=== PATIENT | male | born 1995 | race Caucasian/White ===

== ENCOUNTER 2021-01-14 07:23 | Emergency (ER) | payer SELFPAY ==
[2021-01-14] MEDS ORDERED: Albuterol/Ipratropium 3.0-0.5 MG/3 ML Neb Soln NEB ONE (07:54)
[2021-01-14] MEDS ORDERED: methylPREDNISolone Sodium Succinate 125 MG/2 ML SDV IVPUSH ONE (07:55)
--- NOTE | 2021-01-14 07:58 | EDM.PDOC ---
ED HPI GENERAL MEDICAL PROBLEM - General Chief Complaint: Respiratory Problem Stated Complaint: BREATHING PROBLEM Time Seen by Provider: 01/14/21 07:40 - History of Present Illness INITIAL COMMENTS - FREE TEXT/NARRATIVE: Patient presents complaining of shortness of breath for 2 hours in duration consistent with asthma exacerbation. Patient number of years ago has been intubated. Patient ran out of his asthma medications. No recent fevers or productive sputum. There is typical tightness in his chest. No exacerbating or alleviating factors of these moderate symptoms - Related Data Allergies Allergy/AdvReac Type Severity Reaction Status Date / Time No Known Allergies Allergy Verified 01/14/21 07:43 Home Meds: Home Meds Albuterol Sulfate [Albuterol Sulfate HFA] 8.5 gm INH Q4HR PRN #1 ea 01/14/21 [Rx] Albuterol [Proventil Neb Soln] 01/14/21 [History] Fluticasone/Salmeterol [Advair 250-50] 01/14/21 [History] Montelukast [Singulair] 01/14/21 [History] predniSONE [Prednisone] 50 mg PO DAILY #5 tablet 01/14/21 [Rx] ED ROS GENERAL - Review of Systems Review Of Systems: Comprehensive ROS is negative, except as noted in HPI. Constitutional: Denies: Fever Respiratory: Reports: Shortness of Breath ED EXAM, GENERAL - Physical Exam Exam: See Below Free Text/Narrative:: CONSTITUTIONAL: well appearing in no acute distress SKIN: Warm, dry, and intact without rash HENT: Normocephalic, atraumatic, PULMONARY: Watered air movement. Bilateral wheeze with prolonged expiratory phase CARDIOVASCULAR: regular rate, No murmur, rubs, or gallops GASTROINTESTINAL: soft, nondistended, nontender NEUROLOGIC: normal speech, II-XII intact. light touch/5/5 power equal and symmetric in upper and lower extremities without deficit MUSCULOSKELETAL: no gross deformities, atraumatic PSYCHIATRIC: normal mood and affect Course - Vital Signs Text/Narrative:: Differential diagnosis: Asthma exacerbation, pneumonia, Covid, PE, other Patient presents with shortness of breath in the setting of asthma. Patient given breathing treatments and steroids with improvement of condition. Patient still with some significant tightness. Patient was observed for prolonged period in the emergency department to ensure that he could last enough time for outpatient management. Patient in fact was offered inpatient treatment but would like to go home at this time. I do not think this is unreasonable and patient is going to stay with a friend who lives close to the hospital. Patient will be given breathing treatments and steroids with return precautions. Chest x-ray is otherwise unremarkable and patient feeling better after treatments in the emergency department. Given multiple breathing treatments and multiple reevaluations. Critical care: I spent 30 minutes of critical care time with this patient not including reportable procedures. There was an acute impairment of an organ system with a high probability of imminent or life threatening deterioration in the patient`s condition. Interventions and changes required in the course of therapy are located in the chart. Time involved was spent in direct patient care, reviewing ancillary data, old records, consulting with decision makers, EMS, other doctors, giving orders and documenting. Last Recorded V/S: Last Vital Signs Temp 36.9 C 01/14/21 07:40 Pulse 64 01/14/21 12:56 Resp 19 01/14/21 12:56 BP 118/68 01/14/21 12:56 Pulse Ox 90 L 01/14/21 12:56 - Orders/Labs/Meds Orders: Active Orders 24 hr Category Date Time Status RT Aerosol Therapy [RC] ASDIRECTED Care 01/14/21 07:55 Active Labs: Laboratory Tests 01/14/21 Range/Units 13:25 SARS-CoV-2 RNA (LIZZIE) NEGATIVE (NEGATIVE) Meds: Medications Discontinued Medications Generic Name Dose Route Start Last Admin Trade Name Freq PRN Reason Stop Dose Admin Albuterol/Ipratropium 6 ml 01/14/21 07:54 01/14/21 08:31 Albuterol/Ipratropium 3.0-0.5 Mg/3 Ml Neb Mayo [facility] 01/14/21 07:55 6 ml ONETIME ONE Administration Albuterol/Ipratropium 3 ml 01/14/21 13:09 01/14/21 13:20 Albuterol/Ipratropium 3.0-0.5 Mg/3 Ml Neb Soln [facility] 01/14/21 13:10 3 ml NOW STA Administration Methylprednisolone Sodium Succinate 125 mg 01/14/21 07:55 01/14/21 08:12 Methylprednisolone Sodium Succinate 125 Mg/2 Ml Sdv IVPUSH 01/14/21 07:56 125 mg ONETIME ONE Administration Departure - Departure Time of Disposition: 14:48 Disposition: Home, Self-Care 01 Condition: Good Clinical Impression: Acute asthma - Discharge Information Instructions: Asthma, Adult Referrals: PCP,None [Primary Care Provider] - Forms: ED Department Discharge Additional Instructions: Take steroids once daily for 5 additional days. First dose tomorrow. Take albuterol 2 puffs every 4 hours for the first 2 days and then as needed for shortness of breath afterwards. Return for any increasing shortness of breath or change or worsening condition or if you change your mind and would like to stay in the hospital. Otherwise follow-up with primary care doctor in the next 1 to 2 days for reevaluation The following information is given to patients seen in the emergency department who are being discharged to home. This information is to outline your options for follow-up care. We provide all patients seen in our emergency department with a follow-up referral. The need for follow-up, as well as the timing and circumstances, are variable depending upon the specifics of your emergency department visit. If you don't have a primary care physician on staff, we will provide you with a referral. We always advise you to contact your personal physician following an emergency department visit to inform them of the circumstance of the visit and for follow-up with them and/or the need for any referrals to a consulting yvette newst. The emergency department will also refer you to a specialist when appropriate. This referral assures that you have the opportunity for follow-up care with a specialist. All of these measure are taken in an effort to provide you with optimal care, which includes your follow-up. Primary care clinics in the area: [facility] [address] [place] [address] [id number] [address] [id number] Under all circumstances we always encourage you to contact your private physician who remains a resource for coordinating your care. When calling for follow-up care, please make the office aware that this follow-up is from your recent emergency room visit. If for any reason you are refused follow-up, please contact the [facility] Emergency Department at and asked to speak to the emergency department charge nurse. Sepsis Event Note (ED) - Focused Exam Vital Signs: Vital Signs Temp Pulse Resp BP Pulse Ox 01/14/21 12:56 64 19 118/68 90 L 01/14/21 11:20 73 18 111/72 90 L 01/14/21 10:35 81 19 127/72 91 L 01/14/21 09:38 80 18 123/67 96 01/14/21 09:00 78 19 112/68 93 L 01/14/21 08:30 97 18 113/76 91 L 01/14/21 08:02 110 H 19 139/82 87 L 01/14/21 07:40 36.9 C 104 H 19 117/78 91 L 01/14/21 07:38 102 H 19 120/81 83 L - My Orders Last 24 Hours: My Active Orders 01/14/21 07:55 RT Aerosol Therapy [RC] ASDIRECTED - Assessment/Plan Last 24 Hours: My Active Orders 01/14/21 07:55 RT Aerosol Therapy [RC] ASDIRECTED
--- NOTE | 2021-01-14 08:36 | CR ---
INDICATION: Shortness of breath. TECHNIQUE: Chest 1 view. COMPARISON: None FINDINGS: Cardiovascular and mediastinum: Heart size and vasculature are normal in caliber and appearance. Mediastinum is within normal limits. Lungs and pleural space: Lungs are clear. No sign of infiltrate or mass. No sign of pleural effusion. No pneumothorax. Bones and soft tissues: No significant findings. IMPRESSION: Lungs are clear. Dictated by Ky Anna MD @ 01/14/2021 8:34:[address] Ky Anna @ Jan 14 2021 8:34AM
[2021-01-14] MEDS ORDERED: Albuterol/Ipratropium 3.0-0.5 MG/3 ML Neb Soln NEB STA (13:09)
== END 2021-01-14 15:00 | disposition home or self-care (01) ==
LOC: MW.ED 07:23
DX: J45.909 Unspecified asthma, uncomplicated (principal); Z79.899 Other long term (current) drug therapy; Z20.822 Contact with and (suspected) exposure to COVID-19
CPT/HCPCS: 71045; 87635; 96374; 99285; J2930; J7620-GY; U0002